=== PATIENT | female | born 1960 | race Caucasian/White ===

== ENCOUNTER 2018-08-12 20:01 | Emergency (ER) | payer OTHER ==
[2018-08-12 20:22] VITALS: BP 112/67
--- NOTE | 2018-08-12 20:48 | UC ---
Lower Extremity/Ankle HPI - HPI Summary HPI Summary: This patient is a 57 year old female presenting to [facility] accompanied by with a chief complaint of left toe pain since 10 days ago. Patient dropped a heavy log on it. The foot initially turned black and blue. After icing and taking advil, symptoms have improved. She presents to the ED today because she heard a story of fracture complications involving chronic pain and wishes to make sure her foot is not fractured as well. The pain is rated 2/10 in severity. Symptoms aggravated by nothing. Symptoms alleviated by nothing. 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 Onset/Duration: Lasting Days, Still Present Severity Currently: Mild Pain Intensity: 2 Pain Scale Used: 0-10 Numeric Aggravating Factor(s): Nothing Alleviating Factor(s): Nothing - Allergies/Home Medications Allergies/Adverse Reactions: Allergies Allergy/AdvReac Type Severity Reaction Status Date / Time scopolamine Allergy Unknown Verified 08/12/18 20:24 Reaction Details adhesives Allergy Unknown Uncoded 08/12/18 20:24 Reaction Details Home Medications: Home Medications Acetaminophen TAB* [Tylenol TAB*] 975 mg PO Q6H PRN 08/12/18 [History Confirmed 08/12/18] Sertraline* [Zoloft*] 50 mg PO DAILY 08/12/18 [History Confirmed 08/12/18] PMH/Surg Hx/FS Hx/Imm Hx Previously Healthy: Yes Other Endocrine History: Negative: Diabetes Other Respiratory History: Negative: COPD - Surgical History Surgical History: Yes Surgery Procedure, Year, and Place: X2, LAPAROSCOPY FOR FIBROIDS - Family History Known Family History: Negative: Hypertension - Social History Alcohol Use: None Substance Use Type: None Smoking Status (MU): Never Smoked Tobacco Review of Systems Constitutional: Negative - Fever Musculoskeletal: Other: - left toe swelling and erythema All Other Systems Reviewed And Are Negative: Yes Physical Exam - Summary Physical Exam Summary: Appearance: Well-appearing, Well-nourished Skin: Warm, Dry, No rash Eyes: Normal, PERRL, EOMI, sclera anicteric ENT: Normal Neck: Supple, nontender Respiratory: Clear to auscultation Cardiovascular: S1, S2, no murmur, no rub, no gallop Abdomen: Soft, nontender, no organomegaly Bowel sounds: Present Musculoskeletal: Minimal swelling to left toe, some ecchymosis of toenail, Foot well profused, normal sensation, Good pulses. Full ROM Neurological: Normal, A&Ox3, cranial nerves II-XII WNL, follows commands, gait not tested, sensation intact to pin and light touch Psychiatric: affect normal, behavior appropriate, dressed appropriately, judgment intact Triage Information Reviewed: Yes Vital Signs: Initial Vital Signs Temp 99.0 F 08/12/18 20:17 Pulse 59 08/12/18 20:17 Resp 16 08/12/18 20:17 BP 112/67 08/12/18 20:17 Pulse Ox 99 08/12/18 20:17 Diagnostics - Radiology Foot XR Xray Interpretation: Positive (See Comments) - Foot XR reveals Fracture of distal phalanx. physician has reviewed this radiology report. Radiology Interpretation Completed By: Radiologist Lower Extremity Course/Dx - Course Course Of Treatment: This patient is a 57 year old female presenting to [facility] accompanied by with a chief complaint of left toe pain since 10 days ago. Patient dropped a heavy log on it. The foot initially turned black and blue. After icing and taking advil, symptoms have improved. Foot XR reveals, per radiologist, Fracture of distal phalanx. physician has reviewed this radiology report. Patient is discharged with diagnosis of distal phalanx fracture and will be given master wrap. The patient is agreeable with this plan. - Differential Dx/Diagnosis Provider Diagnoses: Left distal phalanx fracture Discharge - Sign-Out/Discharge Documenting (check all that apply): Patient Departure All imaging exams completed and their final reports reviewed: Yes - Discharge Plan Condition: Stable Disposition: HOME Patient Education Materials: Toe Fracture (ED) Referrals: Ozzy Mccoy MD [Primary Care Provider] - - Attestation Statements Document Initiated by Scribe: Yes Documenting Scribe: Jayne Alvares Provider For Whom Kimberly is Documenting (Include Credential): José Manuel Conley MD Scribe Attestation: Jayne Iqbal, scribed for José Manuel Conley MD on 08/12/18 at 2114.
--- NOTE | 2018-08-13 10:22 | RAD ---
INDICATION: Persistent pain and swelling after dropping a long in the left great toe 10 days earlier COMPARISON: None. TECHNIQUE: 3 views of the left foot were obtained. FINDINGS: There is an enthesophyte at the origin of the plantar fascia at the calcaneal tubercle. Depicted on the AP view of the foot, there is a lucent line oriented horizontally at the proximal metaphysis of the left great toe distal phalanx. There is a small amount of cortical discontinuity both medially and laterally at this level. Remaining visualized bones are otherwise intact and appropriately aligned. IMPRESSION: NONDISPLACED FRACTURE INVOLVING THE PROXIMAL METAPHYSIS OF THE LEFT GREAT TOE DISTAL PHALANX. R1
== END 2018-08-12 21:48 | disposition home or self-care (01) ==
LOC: UCEAST 20:01
DX: S92.425A Nondisplaced fracture of distal phalanx of left great toe, initial encounter for closed fracture (principal); W20.8XXA Other cause of strike by thrown, projected or falling object, initial encounter; Y93.89 Activity, other specified; Y92.9 Unspecified place or not applicable; Z88.8 Allergy status to other drugs, medicaments and biological substances; Z91.048 Other nonmedicinal substance allergy status
CPT/HCPCS: 99212; G0463

== ENCOUNTER 2019-07-05 15:03 | Emergency (ER) | payer OTHER ==
[2019-07-05] MEDS ORDERED: Ketorolac INJ* 30 MG/ML 1 ML VIAL IM ONE (15:29)
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
[2019-07-05] MEDS ORDERED: Mupirocin 2% OINT* TUBE TOPICAL ONE (15:54)
[2019-07-05 17:31] VITALS: BP 140/80
== END 2019-07-05 17:35 | disposition home or self-care (01) ==
LOC: UCEAST 15:03
DX: T24.232A Burn of second degree of left lower leg, initial encounter (principal); T22.112A Burn of first degree of left forearm, initial encounter; T31.0 Burns involving less than 10% of body surface; T75.00XA Unspecified effects of lightning, initial encounter; X08.8XXA Exposure to other specified smoke, fire and flames, initial encounter; Y92.410 Unspecified street and highway as the place of occurrence of the external cause
CPT/HCPCS: 16020; 96372; 99212; G0463; J1885

== ENCOUNTER 2019-07-06 07:18 | Emergency (ER) | payer OTHER ==
[2019-07-06 07:33] VITALS: BP 132/71
[2019-07-06] MEDS ORDERED: Mupirocin 2% OINT* TUBE TOPICAL ONE (08:16)
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
== END 2019-07-06 08:41 | disposition home or self-care (01) ==
LOC: UCEAST 07:18
DX: T24.002D Burn of unspecified degree of unspecified site of left lower limb, except ankle and foot, subsequent encounter (principal); T31.0 Burns involving less than 10% of body surface; W86.8XXD Exposure to other electric current, subsequent encounter; E78.5 Hyperlipidemia, unspecified
CPT/HCPCS: 99212; G0463